=== PATIENT | male | born 1955 | race Two or more races ===

== ENCOUNTER 2023-07-08 21:23 | Inpatient (IN) | payer MEDICARE ==
[~2023-07-08] VITALS: Ht 172.7 cm; Wt 57.2 kg
[2023-07-08] MEDS ORDERED: FAMOTIDINE/PF INJ 20 MG/2 ML VIAL IV ONE (22:14)
[2023-07-08] MEDS ORDERED: MAG HYDROX/AL HYDROX/SIMETH 30 ML UDC ONE (22:14)
[2023-07-08] MEDS ORDERED: ONDANSETRON HCL/PF 4 MG/2 ML VIAL ONE (22:14)
[2023-07-08 22:44] LABS: BASOPHILS % (AUTO) 0.1 % (0.0-2.0); EOSINOPHILS % (AUTO) 0.3 % (0.0-6.0); HEMATOCRIT 28 % (39-51); HEMOGLOBIN 8.8 g/dL (13.5-17.5); LYMPHOCYTES # (AUTO) 0.4 K/uL (0.8-4.8); LYMPHOCYTES % (AUTO) 4.3 % (20.0-44.0); MEAN CORPUSCULAR HEMOGLOBIN 38 PG (26.0-33.0); MEAN CORPUSCULAR HGB CONC 32 g/dl (31.0-36.0); MEAN CORPUSCULAR VOLUME 118 fL (80-96); MONOCYTES # (AUTO) 1.2 K/uL (0.1-1.30); MONOCYTES % (AUTO) 14.2 % (2.0-12.0); NEUTROPHILS # (AUTO) 6.7 K/uL (1.8-8.9); NEUTROPHILS % (AUTO) 81.1 % (43.0-81.0); PLATELET COUNT (AUTO) 246 K/uL (150-450); RED BLOOD CELL COUNT(AUTO) 2.34 MIL/uL (4.5-6.0); RED CELL DISTRIBUTION WIDTH 17.4 % (11.5-15.0); WHITE BLOOD COUNT (AUTO) 8.2 K/uL (4.3-11.0)
[2023-07-08] MEDS: FAMOTIDINE/PF INJ 20 MG/2 ML VIAL IV ONE (22:49)
[2023-07-08] MEDS: IV NS 0.9% 1,000 ML BAG IV ONE (22:49)
[2023-07-08] MEDS: MAG HYDROX/AL HYDROX/SIMETH 30 ML UDC PO ONE (22:50)
[2023-07-08] MEDS: ONDANSETRON HCL/PF 4 MG/2 ML VIAL IVP ONE (22:50)
[2023-07-08 22:55] LABS: CALCIUM, SERUM 9.8 mg/dL (8.5-10.1); CREATININE 5.5 mg/dL (0.6-1.3); POTASSIUM 4.6 mmol/L (3.5-5.1)
[2023-07-08 23:01] LABS: ALBUMIN 2.8 g/dL (3.4-5.0); BILIRUBIN,DIRECT 2.4 mg/dL (0.0-0.2); BILIRUBIN,TOTAL 5.7 mg/dL (0.2-1.0); TOTAL PROTEIN, SERUM 7.6 g/dL (6.4-8.2)
[2023-07-09] VITALS (14 sets, daily range): BP systolic 90–115; BP diastolic 48–82; TEMP 97.6–98; O2SAT 95–100
[2023-07-09 00:31] LABS: INR 1.6 (0.91-1.10); PROTHROMBIN TIME 16.4 SECS (9.2-11.1)
[2023-07-09] MEDS ORDERED: THIAMINE HCL 100 MG TABLET ONE (01:02)
[2023-07-09] MEDS: IV D5/ 0.9% NACL 1,000 ML IV ONE (01:09)
[2023-07-09] MEDS: PANTOPRAZOLE 40 MG VIAL IV ONE (01:09)
[2023-07-09] MEDS: MULTIVITAMINS,THERAGRAN 1 UDTAB TABLET PO SCH ×2 (01:10→09:39)
[2023-07-09] MEDS: THIAMINE HCL 100 MG TABLET PO ONE (01:10)
[2023-07-09 01:34] LABS: LACTIC ACID 17.3 mmol/L (0.4-2.0)
[2023-07-09 01:39] LABS: SITE, VBG Other; VBG COHb 0.3 %; VBG MetHb 0.4 %; VBG O2Hb 83.3 %; VBG OXYGEN SATURATION 83.9 %; VBG PCO2 25.4 mmHg (40-52); VBG PH 7.504 (7.31-7.41); VBG PO2 45.8 mmHg (30-50); VBG TOTAL HEMOGLOBIN 7.7 G/dL (13.5-18.0); VENT MODE, VBG room air
[2023-07-09] MEDS ORDERED: CEFEPIME 1 GM VIAL ONE (02:05)
[2023-07-09] MEDS ORDERED: ONDANSETRON HCL/PF 4 MG/2 ML VIAL ONE ×2 (02:06→06:18)
[2023-07-09] MEDS: ONDANSETRON HCL/PF - ER 4 MG/2 ML VIAL IV ONE (02:21)
[2023-07-09] MEDS: MORPHINE SULFATE INJ 2 MG/ML DISP.SYRIN IV ONE (02:21)
[2023-07-09] MEDS: CEFEPIME 1 GM in IV D5W 50 ML IV ONE (02:21)
[2023-07-09] MEDS ORDERED: MIDAZOLAM HCL 2 MG/2ML VIAL IV ONE (02:30)
[2023-07-09] MEDS ORDERED: VANCOMYCIN 1 GM /D5W 250 ML PB IV ONE (02:54)
[2023-07-09] MEDS ORDERED: MIDAZOLAM HCL 5 MG/5ML VIAL ONE (02:54)
[2023-07-09] MEDS: VANCOMYCIN 1 GM in IV D5W 250 ML IV ONE (03:10)
[2023-07-09] MEDS ORDERED: Magnesium 1 GM/2 ML VIAL ONE (03:20)
[2023-07-09] MEDS ORDERED: DILTIAZEM HCL 25 MG IV ONE ×2 (03:21→05:04)
[2023-07-09] MEDS ORDERED: Magnesium 1 GM/2 ML VIAL IV ONE (03:30)
[2023-07-09] MEDS: DILTIAZEM HCL 25 MG IV IV ONE (03:49)
[2023-07-09 04:01] LABS: CALCIUM, SERUM 8.6 mg/dL (8.5-10.1); CARBON DIOXIDE 19 mmol/L (21-32); CHLORIDE 102 mmol/L (98-107); CREATININE 4.9 mg/dL (0.6-1.3); GLUCOSE 143 mg/dL (74-106); POTASSIUM 3.9 mmol/L (3.5-5.1); SODIUM SERUM 139 mmol/L (136-145); UREA NITROGEN, BLOOD 72 mg/dL (7-18)
[2023-07-09 04:03] LABS: ALCOHOL, BLOOD < 3 mg/dL (0-10); MAGNESIUM 2.6 mg/dL (1.8-2.4); PHOSPHORUS 4.9 mg/dL (2.5-4.9)
[2023-07-09 04:05] LABS: ACETAMINOPHEN <10 ug/ml (10-30); SALICYLATE < 0.2 mg/dL (2.8-20.0)
[2023-07-09] MEDS ORDERED: DILTIAZEM HCL IV 125 MG in IV NS 0.9% 100 ML IV PRN (04:30)
[2023-07-09] MEDS: DILTIAZEM HCL 25 MG IV ONE (05:37)
[2023-07-09] MEDS: IV D5/ 0.9% NACL 500 ML IV ONE (06:30)
[2023-07-09] MEDS: ONDANSETRON HCL/PF 4 MG/2 ML VIAL IV PRN (06:30)
[2023-07-09] MEDS ORDERED: ZOLPIDEM TARTRATE 5 MG TABLET PO PRN (07:00)
[2023-07-09] MEDS ORDERED: Z GUARD REMEDY 4 OZ OINT TP PRN (07:00)
[2023-07-09] MEDS ORDERED: MAG HYDROX/AL HYDROX/SIMETH 30 ML UDC PO PRN (07:00)
[2023-07-09] MEDS ORDERED: ONDANSETRON HCL/PF 4 MG/2 ML VIAL IVP PRN (07:00)
[2023-07-09] MEDS ORDERED: MAGNESIUM HYDROXIDE 30 ML UDC PO PRN (07:00)
[2023-07-09] MEDS: IV NS 0.9% 1,000 ML BAG IV ONE (07:06)
[2023-07-09] MEDS: Thiamine 100 MG in IV D5W 50 ML IV SCH (08:29)
[2023-07-09] MEDS: PANTOPRAZOLE 40 MG TABLET.DR PO SCH (08:44)
[2023-07-09] MEDS: ENOXAPARIN SODIUM 30 MG/0.3 ML DISP.SYRIN SQ SCH (08:45)
[2023-07-09] MEDS: Folic acid 1 MG in IV D5W 50 ML IV SCH (09:06)
[2023-07-09] MEDS: CEFEPIME 1 GM in IV D5W 50 ML IV SCH (09:39)
[2023-07-09] MEDS ORDERED: Thiamine 100 MG in IV D5W 50 ML IV SCH (10:30)
[2023-07-09 12:24] LABS: IRON, SERUM 70 ug/dl (50-175); TOTAL IRON BINDING CAPACITY 142 ug/dl (250-450)
[2023-07-09] MEDS: IV D5/ 0.9% NACL 1,000 ML IV SCH (15:46)
[2023-07-10] VITALS (34 sets, daily range): BP systolic 83–135; BP diastolic 54–103; TEMP 97–98.6; O2SAT 93–100
[2023-07-10 04:27] LABS: BASOPHILS # (AUTO) 0.1 K/uL (0.0-0.2); BASOPHILS % (AUTO) 0.8 % (0.0-2.0); EOSINOPHILS # (AUTO) 0.5 K/uL (0.0-0.7); EOSINOPHILS % (AUTO) 5.2 % (0.0-6.0); HEMATOCRIT 21 % (39-51); LYMPHOCYTES # (AUTO) 1.1 K/uL (0.8-4.8); LYMPHOCYTES % (AUTO) 11.8 % (20.0-44.0); MEAN CORPUSCULAR HEMOGLOBIN 39 PG (26.0-33.0); MEAN CORPUSCULAR HGB CONC 34 g/dl (31.0-36.0); MEAN CORPUSCULAR VOLUME 114 fL (80-96); MONOCYTES # (AUTO) 1.3 K/uL (0.1-1.30); MONOCYTES % (AUTO) 13.5 % (2.0-12.0); NEUTROPHILS # (AUTO) 6.6 K/uL (1.8-8.9); NEUTROPHILS % (AUTO) 68.7 % (43.0-81.0); PLATELET COUNT (AUTO) 160 K/uL (150-450); RED CELL DISTRIBUTION WIDTH 16.8 % (11.5-15.0); WHITE BLOOD COUNT (AUTO) 9.6 K/uL (4.3-11.0)
[2023-07-10 04:35] LABS: RED BLOOD CELL COUNT(AUTO) 1.81 MIL/uL (4.5-6.0)
[2023-07-10 04:49] LABS: ALBUMIN 2.2 g/dL (3.4-5.0); BILIRUBIN,DIRECT 1.8 mg/dL (0.0-0.2); BILIRUBIN,TOTAL 3.7 mg/dL (0.2-1.0); CALCIUM, SERUM 8.1 mg/dL (8.5-10.1); CREATININE 4.3 mg/dL (0.6-1.3); MAGNESIUM 2.5 mg/dL (1.8-2.4); PHOSPHORUS 4.4 mg/dL (2.5-4.9); POTASSIUM 4.2 mmol/L (3.5-5.1); TOTAL PROTEIN, SERUM 5.9 g/dL (6.4-8.2)
[2023-07-10 04:56] LABS: THYROID STIMULATING HORMONE 0.623 uIU/mL (0.358-3.74)
[2023-07-10 08:32] LABS: NEUTROPHILS % (MANUAL) 78 (42-76)
[2023-07-10 08:33] LABS: ANISOCYTOSIS 1+; EOSINOPHILS % (MANUAL) 2 % (0-4); HYPOCHROMASIA 1+; LYMPHOCYTES % (MANUAL) 13 % (16-48); MONOCYTES % (MANUAL) 7 % (0-11.0); PLATELET ESTIMATE ADEQUATE
[2023-07-10 08:34] LABS: OVALOCYTES FEW
[2023-07-10] MEDS: FOLIC ACID 1 MG TABLET PO SCH (09:00)
[2023-07-10] MEDS: THIAMINE HCL 100 MG TABLET PO SCH (09:00)
[2023-07-10] MEDS: IV D5/ 0.9% NACL 1,000 ML IV PRN (10:50)
[2023-07-11] VITALS: BP 109/80; TEMP 98.9; O2SAT 99
[2023-07-11] MEDS: VANCOMYCIN HCL 750 MG in IV D5W 250 ML IV SCH (02:21)
[2023-07-11 04:00] VITALS: BP 96/69; TEMP 99.1; O2SAT 97
[2023-07-11 07:23] LABS: CALCIUM, SERUM 8.1 mg/dL (8.5-10.1); CREATININE 3.5 mg/dL (0.6-1.3); POTASSIUM 4.7 mmol/L (3.5-5.1)
[2023-07-11] MEDS: MORPHINE SULFATE INJ 2 MG/ML DISP.SYRIN IV ONE ×2 (07:30→12:04)
[2023-07-11 08:00] VITALS: BP 103/67; TEMP 98; O2SAT 97
[2023-07-11 08:26] LABS: HEMOGLOBIN 7.4 g/dL (13.5-17.5)
[2023-07-11 12:00] VITALS: BP 103/74; TEMP 98.3; O2SAT 97
[2023-07-11 16:00] VITALS: BP 109/83; TEMP 98.3; O2SAT 97
[2023-07-11] MEDS: MIDODRINE HCL (5MG) 5 MG TABLET PO SCH (17:00)
[2023-07-11] MEDS: PROPRANOLOL HCL 10 MG TABLET PO SCH (17:00)
[2023-07-11] MEDS ORDERED: ANESTHESIA TRAY IN PYXIS 1 EA TRAY MC ONE (17:15)
[2023-07-11] MEDS ORDERED: OCTREOTIDE 500 MCG in IV NS 0.9% 99 ML IV PRN (18:00)
[2023-07-11] MEDS ORDERED: OCTREOTIDE 50 MCG in IV NS 0.9% 50 ML IJ ONE (19:30)
[2023-07-11 20:00] VITALS: BP 113/80; TEMP 100.9; O2SAT 98
[2023-07-11] MEDS: OCTREOTIDE 50 MCG in IV NS 0.9% 50 ML IV ONE (21:41)
[2023-07-11] MEDS: SUCRALFATE 1 G/10 ML UDC GT SCH (21:50)
[2023-07-11] MEDS: ACETAMINOPHEN 325 MG TABLET PO PRN (21:50)
[2023-07-12] VITALS: BP 113/80; TEMP 99; O2SAT 98
[2023-07-12] MEDS: OCTREOTIDE 1,250 MCG in IV NS 0.9% 247.5 ML IV PRN (00:12)
[2023-07-12 04:00] VITALS: BP 101/81; TEMP 98.4; O2SAT 99
[2023-07-12 07:02] LABS: MAGNESIUM 2.1 mg/dL (1.8-2.4); PHOSPHORUS 4.1 mg/dL (2.5-4.9); POTASSIUM 4.4 mmol/L (3.5-5.1)
[2023-07-12 07:08] LABS: INR 1.66 (0.91-1.10)
[2023-07-12 07:24] LABS: BASOPHILS % (AUTO) 0.3 % (0.0-2.0); EOSINOPHILS # (AUTO) 0.2 K/uL (0.0-0.7); EOSINOPHILS % (AUTO) 2.3 % (0.0-6.0); HEMATOCRIT 24 % (39-51); HEMOGLOBIN 7.8 g/dL (13.5-17.5); LYMPHOCYTES # (AUTO) 1.1 K/uL (0.8-4.8); LYMPHOCYTES % (AUTO) 10.5 % (20.0-44.0); MEAN CORPUSCULAR HEMOGLOBIN 38 PG (26.0-33.0); MEAN CORPUSCULAR HGB CONC 33 g/dl (31.0-36.0); MEAN CORPUSCULAR VOLUME 116 fL (80-96); MONOCYTES # (AUTO) 1.6 K/uL (0.1-1.30); MONOCYTES % (AUTO) 15.2 % (2.0-12.0); NEUTROPHILS # (AUTO) 7.7 K/uL (1.8-8.9); NEUTROPHILS % (AUTO) 71.7 % (43.0-81.0); PLATELET COUNT (AUTO) 133 K/uL (150-450); RED BLOOD CELL COUNT(AUTO) 2.05 MIL/uL (4.5-6.0); RED CELL DISTRIBUTION WIDTH 16.8 % (11.5-15.0); WHITE BLOOD COUNT (AUTO) 10.7 K/uL (4.3-11.0)
[2023-07-12] MEDS: PANTOPRAZOLE 40 MG TABLET.DR PO SCH (07:34)
[2023-07-12 08:00] VITALS: BP 115/81; TEMP 98.6; O2SAT 99
[2023-07-12 12:00] VITALS: BP 98/65; TEMP 98.6; O2SAT 99
[2023-07-12] MEDS: COLCHICINE 0.6 MG TABLET PO STA (14:41)
[2023-07-12] MEDS: HYDROMORPHONE 1 MG/1 ML DISP.SYRIN IV PRN (14:42)
[2023-07-12 16:00] VITALS: BP 98/65; TEMP 98.7; O2SAT 99
[2023-07-12] MEDS: COLCHICINE 0.6 MG TABLET PO ONE (16:07)
[2023-07-12] MEDS: MIDODRINE HCL (5MG) 5 MG TABLET PO SCH (16:07)
[2023-07-12 20:00] VITALS: BP 113/94; TEMP 99; O2SAT 100
[2023-07-13] VITALS: BP 100/88; TEMP 98; O2SAT 98
[2023-07-13 04:00] VITALS: BP 98/82; TEMP 98.9; O2SAT 100
[2023-07-13 06:54] LABS: BASOPHILS # (AUTO) 0.1 K/uL (0.0-0.2); BASOPHILS % (AUTO) 0.4 % (0.0-2.0); EOSINOPHILS # (AUTO) 0.8 K/uL (0.0-0.7); EOSINOPHILS % (AUTO) 6.5 % (0.0-6.0); HEMATOCRIT 25 % (39-51); HEMOGLOBIN 8.3 g/dL (13.5-17.5); LYMPHOCYTES # (AUTO) 1.7 K/uL (0.8-4.8); LYMPHOCYTES % (AUTO) 13.7 % (20.0-44.0); MEAN CORPUSCULAR HEMOGLOBIN 39 PG (26.0-33.0); MEAN CORPUSCULAR HGB CONC 33 g/dl (31.0-36.0); MEAN CORPUSCULAR VOLUME 118 fL (80-96); MONOCYTES # (AUTO) 1.8 K/uL (0.1-1.30); MONOCYTES % (AUTO) 14.4 % (2.0-12.0); NEUTROPHILS # (AUTO) 7.9 K/uL (1.8-8.9); PLATELET COUNT (AUTO) 154 K/uL (150-450); RED BLOOD CELL COUNT(AUTO) 2.15 MIL/uL (4.5-6.0); RED CELL DISTRIBUTION WIDTH 16.7 % (11.5-15.0); WHITE BLOOD COUNT (AUTO) 12.2 K/uL (4.3-11.0)
[2023-07-13 07:37] LABS: CALCIUM, SERUM 7.6 mg/dL (8.5-10.1); CREATININE 3.1 mg/dL (0.6-1.3); MAGNESIUM 1.9 mg/dL (1.8-2.4); PHOSPHORUS 3.7 mg/dL (2.5-4.9); POTASSIUM 4.2 mmol/L (3.5-5.1)
[2023-07-13 08:00] VITALS: BP 97/67; TEMP 98.1; O2SAT 100
[2023-07-13] MEDS: COLCHICINE 0.6 MG TABLET PO SCH (08:59)
[2023-07-13 12:00] VITALS: BP 99/63; TEMP 98.1; O2SAT 100
[2023-07-13] MEDS: SUCRALFATE 1 G TABLET PO SCH (12:31)
[2023-07-13] MEDS ORDERED: MIDO5TAB4 PO (15:12)
[2023-07-13] MEDS ORDERED: Colchicine PO (15:12)
[2023-07-13] MEDS ORDERED: PROP10TA68 PO (15:12)
[2023-07-13] MEDS ORDERED: SUCR1TAB31 PO (15:12)
[2023-07-13 16:00] VITALS: BP 97/65; TEMP 98.8; O2SAT 100
[2023-07-13 16:49] VITALS: BP 97/65
== END 2023-07-13 18:19 | DRG 432 ==
LOC: EDBD 21:40 → ER 21:40 → ICU 07-09 04:44 → TELE1 07-10 18:28
PROVIDERS: ADMIT Internal Medicine; ATTEND Nurse Practitioner Acute Care
PROC: 06L38CZ Occlusion of Esophageal Vein with Extraluminal Device, Via Natural or Artificial Opening Endoscopic (ICD-10-PCS; principal; 2023-07-11)
DX: K70.31 Alcoholic cirrhosis of liver with ascites (principal); E43 Unspecified severe protein-calorie malnutrition; K76.7 Hepatorenal syndrome; G93.41 Metabolic encephalopathy; I85.11 Secondary esophageal varices with bleeding; R57.8 Other shock; N17.9 Acute kidney failure, unspecified; E87.29 Other acidosis; K76.6 Portal hypertension; Z68.1 Body mass index [BMI] 19.9 or less, adult; K72.90 Hepatic failure, unspecified without coma; D63.8 Anemia in other chronic diseases classified elsewhere; N18.9 Chronic kidney disease, unspecified; K21.00 Gastro-esophageal reflux disease with esophagitis, without bleeding; E83.41 Hypermagnesemia; E83.51 Hypocalcemia; E88.09 Other disorders of plasma-protein metabolism, not elsewhere classified; I48.0 Paroxysmal atrial fibrillation; J45.909 Unspecified asthma, uncomplicated; D53.9 Nutritional anemia, unspecified; M10.9 Gout, unspecified; E80.6 Other disorders of bilirubin metabolism; D75.89 Other specified diseases of blood and blood-forming organs; K31.89 Other diseases of stomach and duodenum; F10.20 Alcohol dependence, uncomplicated; K80.20 Calculus of gallbladder without cholecystitis without obstruction
CPT/HCPCS: 36415; 71045-TC; 76770-TC; 80048-TC; 80076-TC; 82607-TC; 82803-TC; 83540-TC; 83605-TC; 83690-TC; 83735-TC; 84100-TC; 84443-TC; 84484-TC; 84550-TC; 85025-TC; 85027-TC; 85610-TC; 86803; 86850-TC; 97110-TC; 97530-TC; A4223; C9113; G0378; G0480; J0692; J1170; J1650; J2250; J2270; J2354; J2405; J2704; J3370; J3371; J3411; J3475; J3490; J7030; J7042; J7050; J7060